=== PATIENT | male | born 1975 | race Caucasian/White ===

== ENCOUNTER 2017-05-18 12:06 | Emergency (ER) | payer MEDICAID ==
[~2017-05-18] VITALS: Ht 167.6 cm; Wt 49.9 kg
[2017-05-18 12:07] VITALS: BP 133/72
[2017-05-18] MEDS ORDERED: ACETAMINOPHEN EXTRA STRENGTH 500 MG TAB PO STA (12:09)
[2017-05-18] MEDS ORDERED: IBUPROFEN 400 MG TAB PO ONE (12:10)
[2017-05-18] MEDS ORDERED: ACETAMINOPHEN 325 MG TAB ONE (12:12)
[2017-05-18] MEDS ORDERED: IBUPROFEN 400 MG TAB ONE (12:13)
--- NOTE | 2017-05-18 12:15 | NUR ---
PT AMBULATED TO [facility]
--- NOTE | 2017-05-18 12:23 | NUR ---
DR BARON EVALUATING PT AT BEDSIDE
--- NOTE | 2017-05-18 12:23 | NUR ---
PATIENT PRESENTS TO ED WITH c/o cough fever throat pain chills, bodyaches x 3 days hx---denies rx---none; DENIES N/V/D; SKIN IS PINK/WARM/DRY; AAOX4 WITH EVEN AND STEADY GAIT; LUNGS CLEAR BL; HR EVEN AND REGULAR; PT DENIES ANY FEVER, CP, SOB, OR COUGH AT THIS TIME; PATIENT STATES PAIN OF 8/10 AT THIS TIME; VSS; PATIENT POSITIONED FOR COMFORT; DR ROMERO MADE AWARE OF PT STATUS.
--- NOTE | 2017-05-18 12:44 | NUR ---
INFLUENZA SAMPLE TAKEN SEND TO THE LAB
--- NOTE | 2017-05-18 13:09 | NUR ---
Patient discharged with v/s stable. Written and verbal after care instructions given and explained. Patient alert, oriented and verbalized understanding of instructions. Ambulatory with steady gait. All questions addressed prior to discharge. ID band removed. Patient advised to follow up with PMD. Rx of TAMIFLU, TESSALON, MOTRIN ZOFRAN given. Patient educated on indication of medication including possible reaction and side effects. Opportunity to ask questions provided and answered.
[2017-05-18 13:10] VITALS: BP 112/68
== END 2017-05-18 13:09 | disposition home or self-care (01) ==
LOC: MED 12:19
DX: B34.9 Viral infection, unspecified (principal)
CPT/HCPCS: 36415; 87804; 99284

== ENCOUNTER 2017-11-10 20:41 | Emergency (ER) | payer MEDICAID ==
[~2017-11-10] VITALS: Ht 162.6 cm; Wt 53.1 kg
[2017-11-10 20:47] VITALS: BP 137/77
--- NOTE | 2017-11-10 20:49 | NUR ---
TO LOBBY A/W BED, AMBULATORY, VSS ERMD NOTED
--- NOTE | 2017-11-10 21:04 | NUR ---
PT TAKEN TO BED 4
--- NOTE | 2017-11-10 21:05 | NUR ---
ASSUMED CARE OF PT AT THIS TIME. C/O DIFFUSE ABDOMINAL PAIN W/ NAUSEA X 1 DAY. AAOX4 WITH EVEN AND STEADY GAIT; PATIENT STATES PAIN OF 9/10; VSS; PATIENT POSITIONED FOR COMFORT; HOB ELEVATED; BEDRAILS UP X2; BED DOWN. ER MD MADE AWARE OF PT STATUS. WILL CONTINUE TO MONITOR.
[2017-11-10 21:24] LABS: BASOPHILS # (AUTO) 0.1 K/uL (0.00-0.22); BASOPHILS % (AUTO) 1.1 % (0.0-2.0); EOSINOPHILS # (AUTO) 0.1 K/uL (0-0.4); EOSINOPHILS % (AUTO) 1.3 % (0.0-4.0); HEMATOCRIT 42.7 % (36-52); HEMOGLOBIN 14.5 g/dL (12.0-18.0); LYMPHOCYTES # (AUTO) 1.4 K/uL (2.0-11.5); LYMPHOCYTES % (AUTO) 20.9 % (20.5-51.1); MEAN CORPUSCULAR HEMOGLOBIN 29 pg (27-31); MEAN CORPUSCULAR HGB CONC 34 g/dL (33-37); MEAN CORPUSCULAR VOLUME 86.6 fL (80-94); MONOCYTES # (AUTO) 0.3 K/uL (0.8-1.0); NEUTROPHILS # (AUTO) 4.7 K/uL (1.8-7.7); NEUTROPHILS % (AUTO) 71.7 % (42.2-75.2); PLATELET COUNT (AUTO) 189 K/uL (140-450); RED BLOOD CELL COUNT(AUTO) 4.93 MIL/uL (4.20-6.10); RED CELL DISTRIBUTION WIDTH 12.9 % (11.6-13.7); WHITE BLOOD COUNT (AUTO) 6.5 K/uL (4.8-10.8)
[2017-11-10 21:33] LABS: ANION GAP 5.8 (8-16); CARBON DIOXIDE 31.6 mmol/L (21-32); CREATININE 0.7 mg/dL (0.7-1.3); POTASSIUM 4.4 mmol/L (3.5-5.1)
[2017-11-10 21:40] LABS: ALBUMIN 4.3 g/dL (3.4-5.0); TOTAL BILIRUBIN 0.5 mg/dL (0.0-1.0)
--- NOTE | 2017-11-10 23:13 | NUR ---
Dr. Johnson evaluating patient at bedside.
[2017-11-10] MEDS ORDERED: DICYCLOMINE HCL LIQUID 20 MG, ALUMINUM HYD/MAG/SIMETHICONE 30 ML, LIDOCAINE VISCOUS 2% ... PO ONE ×3 (23:15)
[2017-11-10 23:40] VITALS: BP 128/74
--- NOTE | 2017-11-10 23:40 | NUR ---
Patient discharged with v/s stable. Written and verbal after care instructions given and explained. Patient alert, oriented and verbalized understanding of instructions. Ambulatory with steady gait. All questions addressed prior to discharge. ID band removed. Patient advised to follow up with PMD. Rx of PRILOSEC AND MOTRIN given. Patient educated on indication of medication including possible reaction and side effects. Opportunity to ask questions provided and answered.
== END 2017-11-10 23:40 | disposition home or self-care (01) ==
LOC: MED 20:41
DX: R10.13 Epigastric pain (principal)
CPT/HCPCS: 36415; 80053; 81002; 83690; 85025; 99284

== ENCOUNTER 2021-03-29 19:10 | Emergency (ER) | payer SELFPAY ==
[~2021-03-29] VITALS: Ht 166.6 cm; Wt 53.7 kg
[2021-03-29 20:04] VITALS: BP 107/60
--- NOTE | 2021-03-29 20:11 | NUR ---
PT IN LOBBY
[2021-03-29] MEDS ORDERED: CYCL-711 PO (21:12)
[2021-03-29] MEDS ORDERED: LID5T TP (21:12)
[2021-03-29 21:50] VITALS: BP 107/60
--- NOTE | 2021-03-29 21:50 | NUR ---
Patient discharged with v/s stable. Written and verbal after care instructions given and explained. Patient alert, oriented and verbalized understanding of instructions. Ambulatory with steady gait. All questions addressed prior to discharge. ID band removed. Patient advised to follow up with PMD. Rx of FLEXERIL AND LIDODERM given. Patient educated on indication of medication including possible reaction and side effects. Opportunity to ask questions provided and answered.
== END 2021-03-29 21:50 | disposition home or self-care (01) ==
LOC: MED 19:10
DX: S46.001A Unspecified injury of muscle(s) and tendon(s) of the rotator cuff of right shoulder, initial encounter (principal); Z79.899 Other long term (current) drug therapy; V89.2XXA Person injured in unspecified motor-vehicle accident, traffic, initial encounter; Y93.89 Activity, other specified; Y92.89 Other specified places as the place of occurrence of the external cause; Y99.8 Other external cause status
CPT/HCPCS: 73020; 99283